=== PATIENT | female | born 1995 | race Caucasian/White ===

== ENCOUNTER 2017-07-04 13:22 | Emergency (ER) | payer SELFPAY ==
[~2017-07-04] VITALS: Ht 157.5 cm; Wt 61.0 kg
[2017-07-04] MEDS ORDERED: AMOX TR/POT CLAV 500 MG/125 MG TABLET PO ONE (15:15)
[2017-07-04] MEDS ORDERED: HYDROCODONE/ACETAMINOPHEN 5-325 MG TABLET PO ONE (15:15)
[2017-07-04 15:23] VITALS: BP 134/73
== END 2017-07-04 16:14 | disposition home or self-care (01) ==
LOC: EMS 13:28
DX: S41.152A Open bite of left upper arm, initial encounter (principal); W50.3XXA Accidental bite by another person, initial encounter; Y93.89 Activity, other specified; Y92.89 Other specified places as the place of occurrence of the external cause; Y99.8 Other external cause status
CPT/HCPCS: 99283